=== PATIENT | male | born 1990 | race Caucasian/White ===

== ENCOUNTER 2016-06-26 15:18 | Emergency (ER) | payer OTHER ==
[~2016-06-26 15:18] MED LIST: AMOXICILLIN PO; AMOXICILLIN500 M1 PO; CLEOCIN HCL300 M1 PO; DENTAL BALL; DICLOFENAC PO; IBUPROFEN800 MG PO; KEFLEX PO; MOTRIN400 MG PO; NO MEDICATIONS; PEN-VEE K PO; PHENERGAN PO; TYLENOL #3 PO; ULTRAM PO
== END 2016-06-26 15:19 | disposition home or self-care (01) ==
LOC: CFTX 15:18
DX: K04.7 Periapical abscess without sinus (principal); F17.210 Nicotine dependence, cigarettes, uncomplicated
CPT/HCPCS: 99283